=== PATIENT | female | born 1960 | race Caucasian/White ===

== ENCOUNTER → 2018-10-03 | Outpatient (CLI) | payer OTHER ==
[2015-03-08 17:00] VITALS: BP 138/64
[~2018-10-03] MED LIST: GADOBUTROL 10 MMOL/10 ML VIAL IV ONE
--- NOTE | 2018-10-03 15:56 | RAD ---
Indication: Abdominal pain, abnormal liver enzymes. TECHNIQUE: Multiplanar multisequence MRI and MRCP of the abdomen without and with IV contrast. COMPARISON: None FINDINGS: Heart is normal in size. No pericardial or pleural effusion. Diffuse hepatic steatosis. Liver is normal in morphology. No suspicious liver lesion. Spleen is unenlarged and shows no focal lesion. No gallstones, pericholecystic fluid or gallbladder wall thickening. Intrinsic T1 signal is preserved in the pancreas. No pancreatic or peripancreatic edema. No intra or extrahepatic biliary duct dilation. Main pancreatic duct is nondilated. Adrenal glands demonstrate no nodularity. No hydronephrosis or suspicious renal lesion. No enlarged retroperitoneal adenopathy. No enhancing bone lesion. 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 IMPRESSION: 1. Hepatic steatosis. 2. No cholelithiasis. Electronically signed by: Mario Saavedra DO (10/03/2018 3:53 PM) [facility]
== END | disposition home or self-care (01) ==
LOC: MRI 09:07
PROVIDERS: ATTEND Family Medicine
DX: K76.0 Fatty (change of) liver, not elsewhere classified (principal)
CPT/HCPCS: 74183; A9585